=== PATIENT | female | born 1970 | race Caucasian/White ===

== ENCOUNTER 2016-04-11 11:18 | Emergency (ER) | payer OTHER ==
[2016-04-11 13:18] LABS: BILIRUBIN NEGATIVE (NEGATIVE); BLOOD 3+ Ery/uL (NEGATIVE); CLARITY CLEAR (CLEAR); COLOR YELLOW (YELLOW); GLUCOSE (U) NORMAL (NORMAL); KETONE (U) NEGATIVE (NEGATIVE); LEUKOCYTES NEGATIVE Leu/uL (NEGATIVE); NITRITE NEGATIVE (NEGATIVE); PROTEIN TRACE (LOW) mg/dL (NEGATIVE); SPECIFIC GRAVITY 1.025 (1.001-1.030); UROBILINOGEN 0.2 mg/dL (0.2-1.0)
[2016-04-11 13:29] LABS: CALCIUM OXALATE CRYSTALS TRACE
[2016-04-11 13:31] LABS: URINARY RBC TNTC
[2016-04-11 13:32] LABS: BACTERIA TRACE
[2016-04-11 13:33] LABS: RENAL EPITHELIAL CELLS RARE
[2016-04-11 13:34] LABS: YEAST PRESENT
[2016-04-11 13:35] LABS: MUCOUS MODERATE
== END 2016-04-11 14:42 | disposition home or self-care (01) ==
LOC: FER 11:18
PROVIDERS: Emergency Medicine
DX: N20.0 Calculus of kidney (principal); B37.3 Candidiasis of vulva and vagina; K21.9 Gastro-esophageal reflux disease without esophagitis; F90.9 Attention-deficit hyperactivity disorder, unspecified type; F32.9 Major depressive disorder, single episode, unspecified; M19.90 Unspecified osteoarthritis, unspecified site; F17.210 Nicotine dependence, cigarettes, uncomplicated; Z88.5 Allergy status to narcotic agent; Z79.899 Other long term (current) drug therapy; Z87.442 Personal history of urinary calculi; Z98.84 Bariatric surgery status; Z98.890 Other specified postprocedural states
CPT/HCPCS: 81001; 87088; J1885; J2270

== ENCOUNTER 2020-09-11 08:25 | Emergency (ER) | payer OTHER ==
[~2020-09-11 08:25] MED LIST: BENTYL10 MG PO; MACROBID100 MG PO; PHENERGAN25 M1 PO; VOLTAREN **OUT75 MG PO
[2020-09-11 09:44] LABS: BASOPHIL 0.5 % (0-2); EOSINOPHIL 0.5 % (0-5); LYMPHOCYTE 23.6 % (15-48); MCH 29.4 pg (25.0-31.0); MCHC 32.6 g/dL (32.0-36.0); MCV 90.1 fL (78.0-100.0); MONOCYTE 7.9 % (0-12); MPV 9.9 fL (6.0-9.5); NRBC 0; PLT 236 K/uL (150-400); RBC 4.77 M/uL (4.20-5.40); RDW 13.7 % (11.5-14.0); WBC 4.3 K/uL (4.0-10.5)
[2020-09-11 09:47] LABS: ALBUMIN 3.3 g/dL (3.4-5.0); BILIRUBIN - TOTAL 0.2 mg/dL (0.2-1.0); BUN/CREAT RATIO (CALC) 24.2 RATIO; CREATININE 0.66 mg/dL (0.51-0.95); GLOBULIN (CALCULATION) 3.7 g/dL; POTASSIUM 4.1 mmol/L (3.5-5.1)
[2020-09-11 09:51] LABS: BILIRUBIN NEGATIVE (NEGATIVE); BLOOD NEGATIVE Ery/uL (NEGATIVE); CLARITY CLEAR (CLEAR); COLOR YELLOW (YELLOW); GLUCOSE (U) NORMAL (NORMAL); LEUKOCYTES NEGATIVE Leu/uL (NEGATIVE); NITRITE NEGATIVE (NEGATIVE); PROTEIN TRACE (LOW) mg/dL (NEGATIVE); SPECIFIC GRAVITY >=1.030 (1.001-1.030)
[2020-09-11 10:09] LABS: BACTERIA 1+; SQUAMOUS EPITHELIAL CELLS 20-50; URINARY RBC RARE
[2020-09-11] MEDS ORDERED: AZITHROMYCIN250 MG PO (10:49)
[2020-09-11] MEDS ORDERED: VENTOLIN HFA18 GM INH (10:49)
[2020-09-11] MEDS ORDERED: MEDROL 4MG DOSEP4 MG PO (10:49)
== END 2020-09-11 11:05 | disposition home or self-care (01) ==
LOC: FER 08:25
PROVIDERS: Emergency Medicine
DX: U07.1 COVID-19 (principal); F17.210 Nicotine dependence, cigarettes, uncomplicated
CPT/HCPCS: 36415; 71045; 80053; 81001; 85025; J0780; J2405; J2930; J7030; U0002